=== PATIENT | male | born 1975 | race Hispanic/Latino ===

== ENCOUNTER 2020-03-01 17:15 | Emergency (ER) | payer SELFPAY ==
[2020-03-01 17:15] VITALS: BP 152/96; PULSE 84; RESP 16; TEMP 36.8; O2SAT 99; BMI 26.2
--- NOTE | 2020-03-01 17:21 | CT_ITS ---
STUDY: CT BRAIN WITHOUT CONTRAST REASON FOR EXAM: Male, 44 years old. Headache for 3 days RADIATION DOSAGE (If Supplied By Facility): CTDIvol = ( 44.99 ) mGy, DLP = ( 829.85 ) mGycm TECHNIQUE: Transaxial CT imaging of the brain was performed without administration of intravenous contrast material. Individualized dose optimization techniques were used for this CT. COMPARISON: No relevant priors. FINDINGS: Brain parenchyma is without focal lesions, mass effect, acute intracranial hemorrhage, extra parenchymal fluid collections, hydrocephalus or herniation. The skull is intact. CT/Brain/Head without Contrast IMPRESSION: 1. Normal CT brain. Electronically Signed: Rocío Henson, at 18:07 EDT Tel , Service support ,
--- NOTE | 2020-03-01 17:28 | ED.VIS.GEN ---
History of Present Illness Chief Complaint: Headache Informant: Patient, Friend Onset: Days Maximum Severity: Mild Narrative: Patient is here with his friend who is translating for him he speaks Upper Sorbian the complaint is head pressure on and off since Tuesday he will have paroxysms of head pressure he has had no fever no cough no nausea or vomiting he indicates he has a job where he constantly looks left or right for hours at a time his systems of head pressure exacerbate during that. Then they go away. He has had no numbness weakness paresthesias no history of stroke headache disorder brain tumor or brain aneurysm. No past medical history no medications no coronavirus exposures or symptoms He indicates he is able to sleep at night the headaches do not wake him up when he goes back to work he seems to have exacerbations he indicates Motrin alleviates his headache Past Medical History - Allergies and Home Meds Allergies/Adverse Reactions: Allergies No Known Allergies Allergy (Verified 03/01/20 17:15) Primary Care Physician: NOT,DEFINED [Primary Care Provider] - Past Medical History: None Review of Systems General: Denies: Chills, Fever, Sweats Eyes: Denies: Visual changes - bilaterally, Diplopia ENT: Denies: Rhinorrhea, Sore throat Cardiovascular: Denies: Chest pain, Palpitations Respiratory: Denies: Dyspnea, Cough, Dyspnea on exertion Gastrointestinal: Denies: Abdominal pain, Nausea, Vomiting, Diarrhea, Melena, Hematochezia Genitourinary: Denies: Dysuria, Hematuria, Frequency Musculoskeletal: Denies: Back pain, Extremity Pain Skin: Denies: Rash, Wounds Neurological: Reports: Headache. Denies: Weakness, Numbness Physical Exam Vital Signs/Narrative: Vital Signs Temp Pulse Resp BP Pulse Ox 03/01/20 17:15 98.2 F 84 16 152/96 H 99 General: Well nourished, Well developed, No Acute Distress Head: Normocephalic, Atraumatic Eyes: Perrl, EOMI ENT: Moist mucous membranes, No rhinorrhea Neck: Supple, Nontender Cardiovascular: Regular rate, Regular rhythm, No murmurs Respiratory: No distress, CTA bilaterally, Chest nontender Abdomen: Soft, Nontender, Nondistended, Normal bowel sounds Back: Nontender, Normal Inspection Extremities: Nontender, No edema Skin: Normal color, No rash Neurological: Alert, Oriented x3, Cranial nerves II-XII grossly intact, Normal Strength, Normal Sensation Psychological: Normal affect, Normal Mood Diagnostic/Tx/Re-eval - Medical Decision Making Patient's vital signs are unremarkable the examinations unremarkable complains of a head pressure in the occipital area his HEENT head exam neck exam unremarkable supple neurologic exam normal 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 upper and lower extremities normal he has had this intermittently since Tuesday the symptoms are better when he is not involved with the left and right head turning movement of work given all of the above in his age his complaints ED evaluation pain management fluids head CT The patient's ED evaluation labs head CT reports are available there are generally unremarkable nothing acute discussed this with him and his friend he is resting comfortably he understands exact etiology of all the above remains unclear the one trigger is his activity at work where he looks left to right constantly I have asked him to limit that Naprosyn for pain he is referred to outpatient providers for further management he will return for change in symptoms they are comfortable with this plan Home stable Final impression headache etiology unclear ED Disposition - Plan for ED Patient: Diagnosis: Headache Instructions: ED Headache Unspecified Prescriptions: Naproxen [Naprosyn] 500 mg PO BID #20 tab Prescription Printed Referrals: NOT,DEFINED [Primary Care Provider] -
[2020-03-01] MEDS: 0.9% Normal Saline 1,000 ML 999 ML IV (17:39)
[2020-03-01] MEDS: proCHLORPERazine 10 MG/2 ML Vial IV (17:40)
[2020-03-01] MEDS: DiphenhydrAMINE 50 MG/ML Syringe 25 MG IV (17:41)
[2020-03-01 17:57] LABS: Absolute Lymphocyte Count 1.86 X10^3/uL (0.83-4.51); Absolute Neutrophil Count 2.5 X10^3/uL (2.0-7.7); Basophil# 0.06 X10^3/uL; Basophil% 1.2 % (0-1); Eosinophil# 0.38 X10^3/uL; Eosinophils% 7.3 % (0-5); Hemoglobin 15.1 g/dL (13.0-16.5); Lymphocyte # 1.86 X10^3/ul (4.0); Lymphocyte % 35.9 % (19-41); Mean Corp Hgb Conc 33.6 g/dL (32-36); Mean Corpuscular Hgb 30.4 pg (27.0-32.0); Mean Corpuscular Volume 90.7 fL (80-94); Mean Platelet Vol. 10.5 fl (6.2-12.0); Monocyte# 0.34 X10^3/uL; Monocyte% 6.6 % (0-10); NRBC Flagged by Analyzer 0 % (0-5); Neutrophil # 2.53 X10^3/uL (2.7-7.7); Neutrophil % 48.8 % (47-70); Platelet Count 208 K/mm3 (150-450); RBC Distribution Width CV 12.5 % (11.6-14.6); RBC Distribution Width SD 41.4 fl (35.1-43.9); Red Blood Count 4.96 M/mm3 (4.6-6.2); White Blood Count 5.2 K/mm3 (4.4-11.0)
[2020-03-01 18:08] VITALS: BP 133/90; PULSE 68; O2SAT 100
[2020-03-01 18:13] LABS: Anion Gap 3 (5-15); BUN 12 mg/dL (7-18); Calcium,Total 8.6 mg/dL (8.5-10.1); Chloride 108 mmol/L (98-107); Creatinine, Serum 0.92 mg/dL (0.70-1.30); EST Glomerular Filtration Rate 94 mL/min (>60); Est Glom Filt Rate - Afr Amer 114 mL/min (>60); Glucose 106 mg/dL (74-106); Sodium Level 143 mmol/L (136-145)
== END 2020-03-01 18:47 | disposition home or self-care (01) ==
LOC: ED 18:45
PROVIDERS: Emergency Provider Emergency Medicine
DX: R51 Headache (principal)
CPT/HCPCS: 70450; 80048; 85025; 96361; 96374; 96375; 99283; J7030; A4216

== ENCOUNTER 2021-09-01 10:06 | Emergency (ER) | payer SELFPAY ==
[2021-09-01 10:07] VITALS: BP 160/95; PULSE 106; RESP 18; TEMP 36.6; O2SAT 100; BMI 27.6
--- NOTE | 2021-09-01 10:29 | EX.ED.DYSGE1 ---
HPI History of Present Illness Chief Complaint: Cold Sx Informant: patient Onset/Context/Timing Onset: Days (4) Context: Gradual Onset Timing: Continuous Quality: Out of air Location: Chest Worsened by: Nothing Relieved by: Nothing Narrative Narrative: Patient presents with sore throat and fever that has been getting worse over the past 4 days. Patient states it has gradually gotten worse. Patient states it has been constant. Patient states he feels like he is out of air. Patient admits to some increased watering of his eyes. Patient did not take his temperature. Patient admits to a cough and shortness of breath. Patient also admits to some pain in his chest and back. Patient denies any chills. Patient denies any nausea or vomiting. PFSH PFSH Medical History no medical history no medical history Home Medications NK 09/01/21 [History Last Taken Unknown] Allergy/AdvReac Type Severity Reaction Status Date / Time No Known Allergies Allergy Verified 09/01/21 10:09 Surgical History Hx of appendectomy Social History Smoking Status: Never smoker ROS ROS ED Constitutional Constitutional ED: Reports fever(s) and subjective; Denies chills Eyes Eyes: Denies blurry vision or change in vision ENT ENT ED: Reports sore throat; Denies rhinorrhea Cardiovascular Cardiovascular: Reports chest pain; Denies palpitations Respiratory/Chest Respiratory/Chest: Reports cough and dyspnea Gastrointestinal Gastrointestinal: Denies nausea or vomiting Genitourinary Genitourinary ED: Denies dysuria or hematuria Musculoskeletal Musculoskeletal: Reports back pain; Denies neck pain Integumentary Denies abscess or rash Neurologic Neurologic: Denies headache(s) or weakness Allergic/Immunologic Allergic/Immunologic ED: Denies mouth swelling or urticaria EXAM Physical Exam Const Vital Signs: 09/01/21 10:07 09/01/21 10:21 Temperature 98 F Temperature Source Temporal Pulse Rate 106 H Respiratory Rate 18 Respiratory Effort Normal Non-Labored Blood Pressure 160/95 H Blood Pressure Mean 116 Pulse Ox 100 Oxygen Delivery Method Room Air Positive well nourished and well developed General Appearance ED: well developed and NAD HEENT Reports moist mucous membranes HEENT Narrative: Oropharynx is mildly erythematous. There are no exudates noted. Neck supple and no JVD Neck Narrative: There is mild anterior cervical lymphadenopathy. This is tender to palpation. Resp normal respiratory effort and clear to auscultation bilaterally Cardio regular rate and regular rhythm GI normal to inspection, nondistended, normoactive bowel sounds and non-tender Palpation: soft Neuro oriented x3, CN's II-XII intact bilaterally and no sensory deficits noted Sensorium / Orientation: alert Motor Exam: strength 5/5 throughout Psych mental status grossly normal MDM MDM MDM Narrative Medical decision making narrative: Patient was given a dose of Tylenol here. Influenza A swab was positive. Influenza B swab was negative. COVID-19 rapid antigen was obtained and was negative. Portable 1 view chest x-ray was obtained. On my interpretation, lung kwon are clear. There is normal cardiac silhouette. Bony thorax is normal. There is no acute process noted. Radiologist also interpreted the x-ray and agrees. Rapid strep was obtained and was negative. Patient was advised of his findings. Patient was advised that this is a viral infection. Patient was advised that antibiotics are not going to help with this. Since the patient symptoms have been present for 4 days, Tamiflu will not be of any benefit either. Patient was instructed to continue taking Tylenol as needed for any fevers. Patient was instructed to drink plenty of fluids. Patient was instructed to follow-up with his primary care physician in 5 to 7 days. Patient understood and was agreeable with the plan. All questions were answered. Radiography Chest X-Ray - ED: 1 View, Read by ED Physician, Read by Radiologist and Normal Diagnostic Testing: Clinical Impression(s) from Imaging Studies Chest X-Ray 09/01/21 11:30 IMPRESSION: Nonacute portable x-ray examination of the chest. Electronically Signed: Abdon Scales MD (Brooks) at 12:06 EDT Reading Location ID and State: [facility] / [place] , Service support , Discharge Plan Triage Chief Complaint: Cold Sx ED Provider: Joo Conklin Dx/Rx/DC Orders Clinical Impression: Influenza A Instructions: ED Influenza (Adult) Prescriptions: No Action NK RF: 0 Primary Care Provider: Care Physician,No Primary Referrals: Shanita Olvera [NON-STAFF] - 5-7 Days Care Physician,No Primary [Primary Care Provider] - Print Language: Polish Disposition Disposition: Home, Self Care
[2021-09-01] MEDS: Acetaminophen 500 MG Tablet 1000 MG PO (10:55)
--- NOTE | 2021-09-01 11:30 | RAD_ITS ---
STUDY: X-RAY CHEST REASON FOR EXAM: Male, 45 years old. Fever TECHNIQUE: AP COMPARISON: None. FINDINGS: The lungs are clear and expanded. There is no demonstrated pleural abnormality. Normal size heart. Normal mediastinum and dannielle. Normal visualized pulmonary arteries. Normal visualized aortic arch and descending thoracic aorta. Normal visualized thoracic spine. Normal visualized ribs, clavicles, and shoulders. There is no demonstrated abnormality of the visualized soft tissue structures of the upper abdomen. RAD/Chest 1 View (Portable) IMPRESSION: Nonacute portable x-ray examination of the chest. Electronically Signed: Abdon Scales MD ([place]) at 12:06 EDT Reading Location ID and State: [facility] / [place] , Service support ,
== END 2021-09-01 13:30 | disposition home or self-care (01) ==
PROVIDERS: Emergency Provider Emergency Medicine; Visit Provider Emergency Medicine
DX: J10.1 Influenza due to other identified influenza virus with other respiratory manifestations (principal)
CPT/HCPCS: 71045; 87804; 87811; 87880; 99283

== ENCOUNTER 2022-05-17 16:48 | Emergency (ER) | payer SELFPAY ==
[2022-05-17 16:49] VITALS: BP 149/102; PULSE 72; RESP 14; TEMP 36.4; O2SAT 99; BMI 26.9
--- NOTE | 2022-05-17 18:23 | CT_ITS ---
EXAM: CT ABDOMEN AND PELVIS WITHOUT INTRAVENOUS CONTRAST CLINICAL INDICATION: Pain TECHNIQUE: Helically acquired images were obtained of the abdomen and pelvis without intravenous contrast. This CT exam was performed using one or more of the following dose reduction techniques: automated exposure control, adjustment of the mA and/or kV according to patient size, and/or use of iterative reconstruction technique. This report was created using [employer] report generation technology. COMPARISON: None. FINDINGS: LOWER THORAX: Unremarkable. Lung bases are clear. No cardiomegaly. No significant pericardial effusion. ABDOMEN: LIVER: Unremarkable. Homogeneous. GALLBLADDER AND BILE DUCTS: Unremarkable. No calcified gallstones. No gallbladder distention or wall edema. No intra- or extrahepatic biliary ductal dilation. PANCREAS: Unremarkable. No focal cystic mass. SPLEEN: Unremarkable. Normal size without focal cystic or solid mass. ADRENALS: Unremarkable. No nodules. KIDNEYS AND URETERS: Unremarkable. Normal renal size and position. No hydronephrosis. STOMACH AND BOWEL: Unremarkable. No stomach or bowel distention. No focal inflammatory change. PELVIS: APPENDIX: No evidence of acute appendicitis. BLADDER: Unremarkable. REPRODUCTIVE: Unremarkable as visualized. No mass. ABDOMEN and PELVIS: INTRAPERITONEAL SPACE: Unremarkable. No ascites or other fluid collection. No free air. BONES/JOINTS: Unremarkable. No suspicious lytic or blastic abnormality. SOFT TISSUES: Unremarkable. No discrete abdominal or pelvic wall hernia. VASCULATURE: Unremarkable. Abdominal aorta is normal in caliber. LYMPH NODES: Unremarkable. No enlarged lymph nodes. CT/Abdomen/Pelvis without Cont IMPRESSION: Negative CT of the abdomen and pelvis without intravenous contrast. Electronically Signed: Rosalie Davenport MD at 19:40 EST Reading Location ID and State: [id number] / Tel , Service support ,
[2022-05-17] MEDS: Ketorolac 30 MG/ML Syringe IV (18:45)
[2022-05-17 18:47] LABS: Absolute Lymphocyte Count 1.86 X10^3/uL (0.83-4.51); Basophil# 0.06 X10^3/uL; Basophil% 0.9 % (0-1); Eosinophils% 4.4 % (0-5); Hematocrit 44.1 % (40-54); Hemoglobin 15.1 g/dL (13.0-16.5); Lymphocyte # 1.86 X10^3/ul (0.83-4.51); Lymphocyte % 27.4 % (19-41); Mean Corp Hgb Conc 34.2 g/dL (32-36); Mean Corpuscular Hgb 30.4 pg (27.0-32.0); Mean Corpuscular Volume 88.7 fL (80-94); Mean Platelet Vol. 10.7 fl (6.2-12.0); Monocyte# 0.54 X10^3/uL; NRBC Flagged by Analyzer 0 % (0-5); Neutrophil # 4.01 X10^3/uL (2.7-7.7); Neutrophil % 59.2 % (47-70); Platelet Count 222 K/mm3 (150-450); RBC Distribution Width CV 12.8 % (11.6-14.6); RBC Distribution Width SD 41.7 fl (35.1-43.9); Red Blood Count 4.97 M/mm3 (4.6-6.2); White Blood Count 6.8 K/mm3 (4.4-11.0)
[2022-05-17] MEDS: Ondansetron 4 MG/2 ML Vial IV (18:51)
[2022-05-17 18:57] LABS: Bacteria 0 SEEN /hpf (None Seen); Mucous, Urine 0 SEEN /hpf (<or=2+); Red Blood Cells-Urine 0 SEEN /hpf (0-5); White Blood Cells 0 SEEN /hpf (0-5)
[2022-05-17 19:01] LABS: Anion Gap 5 (5-15); BUN 13 mg/dL (7-18); BUN/Creat Ratio 12.7 RATIO (10-20); Calcium,Total 8.8 mg/dL (8.5-10.1); Chloride 106 mmol/L (98-107); Creatinine, Serum 1.02 mg/dL (0.70-1.30); EST Glomerular Filtration Rate 83 mL/min (>60); Est Glom Filt Rate - Afr Amer 100 mL/min (>60); Estimated Creatinine Clearance 83.71 ml/min; Glucose 106 mg/dL (74-106); Potassium 3.7 mmol/L (3.5-5.1); Sodium Level 141 mmol/L (136-145)
[2022-05-17 19:15] LABS: Color, Urine Yellow (Yellow); Glucose, Dipstick Normal (Normal); Ketone-Dipstick Negative (Negative); Leukocyte Esterase-Dipstick Negative /ul (Negative); Nitrite-Dipstick Negative (Negative); Occult Blood-Urine Negative /ul (Negative); Protein-Dipstick Negative (Negative); Urine Bilirubin Dipstick Negative (Negative); Urine Clarity Sl. Cloudy (Clear); Urine Urobilinogen Normal (Normal)
[2022-05-17 19:41] LABS: Squamous Epithelial Cells - UA 0-5 SEEN /hpf (0-5)
[2022-05-17] MEDS: Acetaminophen 325 MG Tablet 650 MG PO (20:10)
--- NOTE | 2022-05-17 21:57 | EX.ED.DYSGE1 ---
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 He states he has had flank pain and head pain since Tuesday. He states the flank pain has been constant in nature. He states the head pain feels like a tight band is wrapping around his head and is intermittent. Patient admits to some noise and light sensitivity. Patient denies fever, vomiting, hematuria, dysuria, nausea, history of kidney stones, and dizziness. Patient states the only abdominal surgery he has had has been a hernia repair. PFSH PFS Home Medications NK 09/01/21 [History Last Taken Unknown] Allergy/AdvReac Type Severity Reaction Status Date / Time No Known Allergies Allergy Verified 09/01/21 10:09 Surgical History Hx of appendectomy Social History Smoking Status: Never smoker ROS ROS ED Constitutional Constitutional ED: Denies chills, fever(s) or sweats Eyes Eyes: Reports photophobia; Denies blurry vision or change in vision ENT ENT ED: Denies rhinorrhea or sore throat Cardiovascular Cardiovascular: Denies chest pain or racing heartbeat Respiratory/Chest Respiratory/Chest: Denies cough or dyspnea Gastrointestinal Gastrointestinal: Denies abdominal pain, diarrhea, nausea or vomiting Genitourinary Genitourinary ED: Denies dysuria, hematuria or urinary frequency Musculoskeletal Musculoskeletal: Reports back pain; Denies neck pain Integumentary Denies Abrasions or rash Neurologic Neurologic: Reports headache(s); Denies paresthesias or weakness EXAM Physical Exam Const Vital Signs: 05/17/22 16:49 Temperature 97.5 F L Temperature Source Temporal Pulse Rate 72 Respiratory Rate 14 Blood Pressure 149/102 H Blood Pressure Mean 117 Pulse Ox 99 Oxygen Delivery Method Room Air Positive well nourished and well developed General Appearance ED: well developed HEENT Reports moist mucous membranes Negative for trauma or tenderness Eyes PERRL and EOMs intact bilaterally Neck supple Resp normal respiratory effort and clear to auscultation bilaterally Cardio regular rate, regular rhythm and no murmurs GI normal to inspection, nondistended, normoactive bowel sounds and no masses; Negative for hepatosplenomegaly Back/Spine General Back: CVA tenderness right Extremity normal to inspection General Extremety ED: Negative for edema or tenderness General Extremity: Negative for edema Neuro oriented x3, CN's II-XII intact bilaterally and no sensory deficits noted Sensorium / Orientation: alert Motor Exam: strength 5/5 throughout Psych mental status grossly normal Skin no rashes or lesions noted, no wounds and skin turgor normal MDM MDM MDM Narrative Medical decision making narrative: Abdominal CT does not show any kidney stones. Patient was given Toradol for head pain. Patient's vital signs have been within normal limits and stable. I am comfortable with patient discharging home with return instructions. Patient is comfortable with plan. I have answered all patient's questions. Lab Data Attestation: I reviewed the patient's lab results. Lab results narrative: CBC within normal limits, BMP within normal limits, UA negative for cystitis or blood. Labs: Laboratory Results - last 24 hr 05/17/22 05/17/22 05/17/22 18:40 18:40 18:55 WBC 6.8 RBC 4.97 Hgb 15.1 Hct 44.1 MCV 88.7 MCH 30.4 MCHC 34.2 RDW Std Deviation 41.7 RDW Coeff of José Miguel 12.8 Plt Count 222 MPV 10.7 Immature Gran % (Auto) 0.100 Neut % (Auto) 59.2 Lymph % (Auto) 27.4 [place] % (Auto) 8.0 Eos % (Auto) 4.4 Baso % (Auto) 0.9 Absolute Neuts (auto) 4.0 Absolute Lymphs (auto) 1.86 Nucleated RBC % 0 Sodium 141 Potassium 3.7 Chloride 106 Carbon Dioxide 30.0 Anion Gap 5 BUN 13 Creatinine 1.02 Estim Creat Clear Calc 83.71 Est GFR (MDRD) Af Amer 100 Est GFR (MDRD) Non-Af 83 BUN/Creatinine Ratio 12.7 Glucose 106 Calcium 8.8 Urine Color Yellow Urine Clarity Sl. Cloudy Urine pH 8.0 Ur Specific [place] 1.010 Urine Protein Negative Urine Glucose (UA) Normal Urine Ketones Negative Urine Occult Blood Negative Urine Nitrite Negative Urine Bilirubin Negative Urine Urobilinogen Normal Ur Leukocyte Esterase Negative Urine RBC 0 SEEN Urine WBC 0 SEEN Ur Squamous Epith Cells 0-5 SEEN Urine Bacteria 0 SEEN Urine Mucus 0 SEEN Radiography Diagnostic Testing: Clinical Impression(s) from Imaging Studies Abdomen/Pelvis CT 05/17/22 18:23 IMPRESSION: Negative CT of the abdomen and pelvis without intravenous contrast. Electronically Signed: Rosalie Davenport MD at 19:40 EST Reading Location ID and State: [id number] / Tel , Service support , Negative CT of the abdomen and pelvis without intravenous contrast. I agree with radiologist impressions. This has also been reviewed by attending ED physician. ? Discharge Plan Triage Chief Complaint: Flank Pain ED Midlevel Provider: Lorena Majano ED Provider: Antwan Bello Dx/Rx/DC Orders Clinical Impression: Nausea, Headache, Right flank pain Instructions: Headache Tension Ch Prescriptions: No Action NK Primary Care Provider: Nilton Haynes Referrals: Nilton Haynes MD [Primary Care Provider] - 5-7 Days Activity Restrictions/Additional Instructions: [id number] ibuprofen or Tylenol can be taken for head pain. Please return if symptoms worsen and follow-up with PCP. Disposition Disposition: Home, Self Care Discharge Date/Time: 05/17/22 20:15
== END 2022-05-17 20:15 | disposition home or self-care (01) ==
PROVIDERS: Physician Assistant; Emergency Provider Emergency Medicine; PCP Internal Medicine; Visit Provider Emergency Medicine
DX: R10.9 Unspecified abdominal pain (principal); R11.0 Nausea; R51.9 Headache, unspecified
CPT/HCPCS: 74176; 80048; 81001; 85025; 96374; 96375; 99284; A4216; J2405